=== PATIENT | female | born 1960 | race Caucasian/White ===

== ENCOUNTER 2019-08-03 11:12 | Emergency (ER) | payer OTHER, BC ==
[2019-08-03 11:53] LABS: CHLORIDE,CL 106 mEq/L (98-106); SODIUM,NA 145 mEq/L (136-145)
--- NOTE | 2019-08-03 13:02 | EDM.PDOC ---
ED HPI GENERAL MEDICAL PROBLEM - General Chief Complaint: Chest Pain Stated Complaint: chest pressure Time Seen by Provider: 08/03/19 11:41 Source of Information: Reports: Patient History Limitations: Reports: No Limitations - History of Present Illness INITIAL COMMENTS - FREE TEXT/NARRATIVE: Jocye is a 59 yo female who presents to the ED with concerns of chest pressure and dizziness. States this has happened in the past and has had multiple work ups. Last known time this happened was in December/January timeframe. States she was out in the barn working with her horses and when she went from looking up to down and then back up is when she started to get lightheaded. She states she noticed her heart to race and had some discomfort. Happened around 10:45 this morning. currently denies any symptoms. States she isn't sure if it is anxiety or stress related. Has seen cardiology in the past. Has had multiple diagnostic tests to include carotid duplex, echocardiogram, cardiac event monitor, etc... Chest Pain Score (Numeric/FACES): 5 - Related Data Allergies Allergy/AdvReac Type Severity Reaction Status Date / Time Iodine solution Allergy Cannot Uncoded 08/03/19 11:40 Remember Seafood Allergy Cannot Uncoded 08/03/19 11:40 Remember Home Meds: Home Meds Cholecalciferol (Vitamin D3) [Vitamin D3] 2,000 units PO DAILY 06/05/17 [History ] Fexofenadine HCl 1 ea PO ASDIRECTED PRN 06/05/17 [History] Ibuprofen 1 ea PO ASDIRECTED PRN 06/05/17 [History] Levothyroxine Sodium 88 mcg PO DAILY 06/05/17 [History] Magnesium 250 mg PO DAILY 06/05/17 [History] diphenhydrAMINE [Benadryl] 1 ea PO ASDIRECTED PRN 06/05/17 [History] Rosuvastatin [Crestor] 5 mg PO DAILY 06/20/18 [History] Past Medical History HEENT History: Reports: Impaired Vision Cardiovascular History: Reports: High Cholesterol Respiratory History: Reports: Other (See Below) Other Respiratory History: Seasonal allergies Endocrine/Metabolic History: Reports: Hypothyroidism - Infectious Disease History Infectious Disease History: Reports: None Social & Family History - Family History Family Medical History: Noncontributory - Tobacco Use Smoking Status *Q: Never Smoker - Caffeine Use Caffeine Use: Reports: Coffee - Recreational Drug Use Recreational Drug Use: No ED ROS GENERAL - Review of Systems Review Of Systems: Comprehensive ROS is negative, except as noted in HPI. ( currently experiencing no symptoms.) Constitutional: Reports: No Symptoms HEENT: Reports: No Symptoms Respiratory: Reports: No Symptoms Cardiovascular: Reports: Chest Pain, Lightheadedness, Palpitations. Denies: Blood Pressure Problem, Claudication, Edema, Syncope GI/Abdominal: Reports: No Symptoms : Reports: No Symptoms Skin: Reports: No Symptoms Neurological: Reports: No Symptoms Psychiatric: Reports: Anxiety, Depression ED EXAM, GENERAL - Physical Exam Exam: See Below Exam Limited By: No Limitations General Appearance: Alert, WD/WN, No Apparent Distress Eye Exam: Bilateral Eye: Normal Inspection, PERRL Ears: Normal External Exam, Normal Canal, Hearing Grossly Normal, Normal TMs Nose: Normal Inspection, Normal Mucosa, No Blood Throat/Mouth: Normal Inspection, Normal Lips, Normal Teeth, Normal Gums, Normal Oropharynx, Normal Voice, No Airway Compromise Head: Atraumatic, Normocephalic Neck: Normal Inspection, Supple, Non-Tender, Full Range of Motion Respiratory/Chest: No Respiratory Distress, Lungs Clear, Normal Breath Sounds, No Accessory Muscle Use Cardiovascular: Normal Peripheral Pulses, Regular Rate, Rhythm, No Murmur GI/Abdominal: Normal Bowel Sounds, Soft, Non-Tender, No Organomegaly, No Distention, No Abnormal Bruit Extremities: Normal Inspection, Normal Range of Motion, Non-Tender, No Pedal Edema, Normal Capillary Refill Neurological: Alert, Oriented, CN II-XII Intact, Normal Cognition, No Motor/ Sensory Deficits Psychiatric: Normal Affect, Normal Mood Skin Exam: Warm, Dry, Intact, Normal Color, No Rash EKG INTERPRETATION EKG Date: 08/03/19 Rhythm: NSR Course - Vital Signs Last Recorded V/S: Last Vital Signs Temp 98.5 F 08/03/19 11:12 Pulse 67 08/03/19 12:42 Resp 16 08/03/19 12:42 BP 116/58 L 08/03/19 12:42 Pulse Ox 99 08/03/19 12:42 - Orders/Labs/Meds Orders: Active Orders 24 hr Category Date Time Status Chest 2V [CR] Stat Exams 08/03/19 11:27 Taken Labs: Laboratory Tests 08/03/19 08/03/19 08/03/19 Range/Units 11:23 11:40 11:40 WBC 6.7 (5.0-10.0) 10^3/uL RBC 4.91 (4.00-5.50) 10^6/uL Hgb 13.7 (12.0-16.0) g/dL Hct 41.5 (37.0-47.0) % MCV 84.5 (82.0-94.0) fL MCH 27.9 (27.0-32.0) pg MCHC 33.0 (33.0-38.0) g/dL RDW Coeff of [place] 12.8 (11.0-15.0) % Plt Count 246 (150-400) 10^3/uL Neut % (Auto) 63.0 (35-85) % Lymph % (Auto) 23.1 (10-55) % [place] % (Auto) 9.5 (0-16) % Eos % (Auto) 4.2 (0-5) % Baso % (Auto) 0.2 (0-3) % Neut # (Auto) 4.20 (1.80-7.00) 10^3/uL Lymph # (Auto) 1.54 (1.00-4.80) 10^3/uL [place] # (Auto) 0.63 (0.00-0.80) 10^3/uL Eos # (Auto) 0.28 (0.00-0.45) 10^3/uL Baso # (Auto) 0.01 10^3/uL PT 10.0 (9.7-12.3) SEC INR 0.97 (0.92-1.18) APTT 25.8 (23.2-32.3) SEC D-Dimer, Quantitative 0.39 (0.00-0.50) Sodium 145 (136-145) mEq/L Potassium 3.8 (3.5-5.0) mEq/L Chloride 106 (98-106) mEq/L Carbon Dioxide 27 (21-32) mmol/L BUN 15 D (7-18) mg/dL Creatinine 0.7 (0.6-1.0) mg/dL Est Cr Clr Drug Dosing 61.39 mL/min Estimated GFR (MDRD) > 60 (>=60) mL/min Glucose 95 (75-99) mg/dL Calcium 8.7 (8.4-10.1) mg/dL Total Bilirubin 0.9 (0.0-1.0) mg/dL AST 22 (15-37) U/L ALT 20 (12-78) U/L Alkaline Phosphatase 96 (46-116) U/L Lactate Dehydrogenase 164 (100-190) U/L Creatine Kinase 96 (21-215) U/L Troponin I < 0.017 (0.00-0.06) ng/mL Total Protein 7.4 (6.4-8.2) g/dL Albumin 3.6 (3.4-5.0) g/dL Lipase 186 (73-393) U/L Departure - Departure Time of Disposition: 13:01 Disposition: Home, Self-Care 01 Clinical Impression: Atypical chest pain, Acute stress reaction Instructions: Nonspecific Chest Pain, [id number], Panic Attack, [id number] Additional Instructions: 1) Rest today 2) Will look at setting up with Felecia Long as discussed for anxiety/stress/ etc... She is out of the office until the 15 of August 3) Recommend recheck in clinic next week. 4) Everything looked excellent today. Labs showed no cardiac disease, pulmonary emboli 5) Follow up sooner if any concerns or if chest pain returns. Sepsis Event Note - Evaluation Sepsis Screening Result: No Definite Risk - Focused Exam Vital Signs: Vital Signs Temp Pulse Resp BP Pulse Ox 08/03/19 12:42 67 16 116/58 L 99 08/03/19 12:27 66 16 115/54 L 98 08/03/19 12:12 65 16 118/62 98 08/03/19 11:57 61 16 114/71 97 08/03/19 11:42 78 16 118/74 95 08/03/19 11:27 72 16 111/69 96 08/03/19 11:12 98.5 F 76 16 117/75 97 Date Exam was Performed: 08/03/19 Time Exam was Performed: 12:57 - Problem List & Annotations (1) Acute stress reaction SNOMED Code(s): 17401570 Code(s): F43.0 - ACUTE STRESS REACTION Status: Acute (2) Atypical chest pain SNOMED Code(s): 603549661 Code(s): R07.89 - OTHER CHEST PAIN Status: Acute - My Orders Last 24 Hours: My Active Orders 08/03/19 11:27 Chest 2V [CR] Stat - Assessment/Plan Last 24 Hours: My Active Orders 08/03/19 11:27 Chest 2V [CR] Stat Plan: Exam grossly benign today. No identifiable for patients symptoms that have subsided. Labs all stable. D-dimer and cardiac work up is negative. Will discharge home at this time.
== END 2019-08-03 13:35 | disposition home or self-care (01) ==
LOC: CC.ED 11:12
DX: R07.89 Other chest pain (principal); F43.0 Acute stress reaction; Z91.013 Allergy to seafood; Z91.09 Other allergy status, other than to drugs and biological substances; E03.9 Hypothyroidism, unspecified; E78.00 Pure hypercholesterolemia, unspecified; Z79.899 Other long term (current) drug therapy
CPT/HCPCS: 36415; 71046; 80053; 82550; 83615; 83690; 84484; 85025; 85379; 85610; 85730; 93005; 99285-25